=== PATIENT | female | born 1965 | race Two or more races ===

== ENCOUNTER 2021-10-19 13:28 | Inpatient (IN) | payer OTHER, MEDICAID ==
[~2021-10-19] VITALS: Ht 167.6 cm; Wt 126.0 kg
[2021-10-19 15:48] LABS: Basophils # (auto) 0.1 10 ^3/uL (0-0.2); Eosinophils # (auto) 0 10 ^3/uL (0-0.8); Eosinophils % (auto) 0.1 % (0.0-7.0); Hemoglobin 8.8 g/dL (12.2-16.2); Mean Corpuscular Hemoglobin 25.7 pg (28.0-32.0); Nucleated Red Blood Cells % 0.1 %
[2021-10-19 15:50] LABS: Basophils % (auto) 0.5 % (0.0-2.0); Hematocrit 26.9 % (36.0-46.0); Lymphocytes # (auto) 0.9 10 ^3/uL (0.4-5.4); Lymphocytes % (auto) 4.9 % (10.0-50.0); Mean Corpuscular Hgb Conc. 32.8 g/dL (32.0-36.0); Mean Corpuscular Volume 78.3 fL (80.0-100.0); Monocytes # (auto) 0.9 10 ^3/uL (0-1.3); Monocytes % (auto) 4.6 % (0.0-12.0); Neutrophils # (auto) 17.2 10 ^3/uL (1.6-8.6); Neutrophils % (auto) 89.9 % (37.0-80.0); Red Blood Cells 3.44 10^6/uL (4.0-5.20); Red Cell Distribution Width 16.6 % (11.8-14.3); White Blood Cell 19.1 10^3/uL (4.4-10.8)
[2021-10-19 15:52] LABS: Albumin 2.7 g/dL (3.4-5.0); Calcium 8.8 mg/dL (8.5-10.1); Magnesium 2.6 mg/dL (1.6-2.6)
[2021-10-19 15:56] LABS: BUN/Creatinine Ratio 19.1; Bilirubin, Total 0.4 mg/dL (0.2-1.0); Total Protein 6.8 g/dL (6.4-8.2)
[2021-10-19 16:06] LABS: Potassium 6.6 mmol/L (3.5-5.1)
[2021-10-19] MEDS ORDERED: ALBUTEROL SULF 2.5 MG/0.5ML(0.5%) NEB SOLN NEB ONE (16:30)
[2021-10-19] MEDS ORDERED: CALCIUM CHL 100MG/ML 1,000 MG in D5W 5% 100 ML IV ONE (16:30)
[2021-10-19] MEDS ORDERED: InsuLIN REG 1unit/0.01ml Soln (100units/ml) IV ONE (16:30)
[2021-10-19] MEDS ORDERED: SODIUM CHL 0.9% IV ONE (16:45)
[2021-10-19] MEDS ORDERED: CALCIUM CHL IV ONE (16:45)
[2021-10-19] MEDS ORDERED: FUROSEMIDE 40 MG/4 ML VIAL IV ONE (17:00)
[2021-10-19 17:31] LABS: Urine Bacteria FEW /hpf (None Seen); Urine Blood TRACE /uL (Negative); Urine Hyaline Cast FEW /lpf (0 - 2); Urine Mucus FEW (None Seen); Urine Specific Gravity 1.023 (1.001-1.035); Urine WBC 192 /hpf (0 - 5); Urine WBC Clumps PRESENT /hpf (None Seen)
[2021-10-19 18:10] VITALS: BP 115/40
[2021-10-19] MEDS ORDERED: LEVOTHYROXINE SODIUM 100 MCG/5 ML INJ IV ONE ×2 (18:15→18:45)
[2021-10-19] MEDS ORDERED: cefTRIAXone 1GM/50ML D5W 50 ML IV ONE (18:15)
[2021-10-19] MEDS ORDERED: MORPHINE SULFATE INJECTION 2 MG/ML SYRG IV PRN (19:00)
[2021-10-19] MEDS ORDERED: NITROGLYCERIN 0.4 MG SL TAB SL PRN (19:00)
[2021-10-19] MEDS ORDERED: ACETAMINOPHEN 325 MG TAB PO PRN (19:00)
[2021-10-19] MEDS ORDERED: VANCOMYCIN PER PHARMACY 0 MG IV SCH (19:00)
[2021-10-19] MEDS ORDERED: SODIUM CHLORIDE 0.9% 1,000 ML IV SCH (19:00)
[2021-10-19] MEDS ORDERED: DEXTROSE (50%) 50ML SYRG IV PRN (19:15)
[2021-10-19] MEDS ORDERED: VANCOMYCIN 1GM/250ML 250 ML IV ONE (19:15)
[2021-10-19 19:42] LABS: Cholesterol 100 mg/dL (< 200); HDL Cholesterol 43 mg/dL (40-59); LDL Cholesterol 40 mg/dL (< 100); Triglycerides 138 mg/dL (< 150)
[2021-10-19] MEDS: PIPERACILLIN-TAZOB 3.375GM 100 ML IV SCH (19:57)
[2021-10-19 20:08] LABS: BUN/Creatinine Ratio 19.3; Calcium 9.3 mg/dL (8.5-10.1)
[2021-10-19 20:13] VITALS: BP 111/62
[2021-10-19 20:18] LABS: Potassium 6.7 mmol/L (3.5-5.1)
[2021-10-19 20:50] VITALS: BP 97/35
[2021-10-19 21:05] VITALS: BP 97/35
[2021-10-19] MEDS: ACCU-CHEK COMFORT CURVE STRIP VI SCH (22:00)
[2021-10-19] MEDS ORDERED: HEPARIN SODIUM (PORCINE) 5000 UNITS/ML 1ML VIAL IV SCH (22:00)
[2021-10-19 22:20] VITALS: BP 101/52
[2021-10-19] MEDS: InsuLIN REG 1unit/0.01ml Soln (100units/ml) SC SCH (22:55)
[2021-10-20] VITALS (30 sets, daily range): BP systolic 80–151; BP diastolic 26–87
[2021-10-20 01:14] LABS: Hematocrit 26.3 % (36.0-46.0); Hemoglobin 8.7 g/dL (12.2-16.2)
[2021-10-20 01:16] LABS: Mean Corpuscular Hemoglobin 26.4 pg (28.0-32.0); Mean Corpuscular Hgb Conc. 33.2 g/dL (32.0-36.0); Mean Corpuscular Volume 79.7 fL (80.0-100.0); Red Blood Cells 3.29 10^6/uL (4.0-5.20); Red Cell Distribution Width 16.9 % (11.8-14.3); White Blood Cell 16.4 10^3/uL (4.4-10.8)
[2021-10-20 01:32] LABS: Basophils % (manual) 0 (0.0-2.0); Blast Cells 0; Eosinophils % (manual) 0 (0-7); Metamyelocytes % 0; Myelocytes % 0; Promyelocytes % 0; Reactive Lymphocytes 0
[2021-10-20 01:47] LABS: Band Neutrophils % (manual) 3; Lymphocytes % (manual) 12 (10.0-50.0); Monocytes % (manual) 5 (0-12)
[2021-10-20] MEDS ORDERED: SODIUM BICARBONATE 50ML VIAL 100 ML in D5W 5% 1,000 ML IV SCH (02:30)
[2021-10-20] MEDS ORDERED: NOREPINEPHRINE 8 MG/250ML KIT 250 ML IV ONE (02:34)
[2021-10-20] MEDS: NOREPINEPHRINE 8 MG/250ML KIT 250 ML IV SCH (02:54)
[2021-10-20] MEDS ORDERED: SODIUM BICARBONATE 8.4 % INJ 50ML VIAL IV ONE ×3 (03:00→07:00)
[2021-10-20] MEDS: PIPERACILLIN-TAZOB 3.375GM 100 ML IV SCH ×3 (03:11→19:32)
[2021-10-20 05:46] LABS: Chloride 99 mmol/L (98-107); Sodium 129 mmol/L (136-145)
[2021-10-20 05:48] LABS: Basophils # (auto) 0.1 10 ^3/uL (0-0.2); Basophils % (auto) 0.4 % (0.0-2.0); Eosinophils # (auto) 0 10 ^3/uL (0-0.8); Eosinophils % (auto) 0.2 % (0.0-7.0); Hematocrit 24.5 % (36.0-46.0); Hemoglobin 8.1 g/dL (12.2-16.2); Lymphocytes # (auto) 1.6 10 ^3/uL (0.4-5.4); Lymphocytes % (auto) 10.2 % (10.0-50.0); Mean Corpuscular Hemoglobin 26.1 pg (28.0-32.0); Mean Corpuscular Hgb Conc. 33.2 g/dL (32.0-36.0); Mean Corpuscular Volume 78.7 fL (80.0-100.0); Monocytes # (auto) 1.1 10 ^3/uL (0-1.3); Monocytes % (auto) 6.7 % (0.0-12.0); Neutrophils # (auto) 13.3 10 ^3/uL (1.6-8.6); Neutrophils % (auto) 82.5 % (37.0-80.0); Nucleated Red Blood Cells % 0.4 %; Red Blood Cells 3.11 10^6/uL (4.0-5.20); Red Cell Distribution Width 16.4 % (11.8-14.3); White Blood Cell 16.1 10^3/uL (4.4-10.8)
[2021-10-20 06:09] LABS: Alanine Aminotransferase 12 U/L (13-56); Albumin 2.2 g/dL (3.4-5.0); Anion Gap 12 (5-15); Aspartate Aminotransferase 13 U/L (15-37); BUN/Creatinine Ratio 21.5; Blood Urea Nitrogen 42 mg/dL (7-18); Calcium 8.8 mg/dL (8.5-10.1); Carbon Dioxide 18 mmol/L (21-32); GFR African American 34 mL/min; GFR Non-African American 28 mL/min; Glucose 132 mg/dL (74-106)
[2021-10-20 06:11] LABS: Alkaline Phosphatase 169 U/L (45-117); Bilirubin, Total 0.2 mg/dL (0.2-1.0); Total Protein 6.1 g/dL (6.4-8.2)
[2021-10-20] MEDS: ACCU-CHEK COMFORT CURVE STRIP VI SCH ×4 (06:31→21:20)
[2021-10-20] MEDS: InsuLIN REG 1unit/0.01ml Soln (100units/ml) SC SCH ×4 (06:32→21:20)
[2021-10-20 06:40] LABS: Potassium 7.4 mmol/L (3.5-5.1)
[2021-10-20] MEDS ORDERED: DEXTROSE (50%) 50ML SYRG IV ONE (07:00)
[2021-10-20] MEDS ORDERED: SODIUM ZIRCONIUM CYCL 10 GM PAK PO ONE (07:00)
[2021-10-20] MEDS ORDERED: InsuLIN REG 1unit/0.01ml Soln (100units/ml) IV ONE (07:00)
[2021-10-20] MEDS ORDERED: ALBUTEROL SULF 2.5 MG/0.5ML(0.5%) NEB SOLN NEB ONE (07:00)
[2021-10-20] MEDS ORDERED: CALCIUM GLUC 1,000mg/50ml-NS 50 ML IV ONE (07:00)
[2021-10-20] MEDS ORDERED: SODIUM ZIRCONIUM CYCL 10 GM PAK PO SCH (09:30)
[2021-10-20] MEDS ORDERED: LEVOTHYROXINE SODIUM 100 MCG/5 ML INJ IV SCH (10:00)
[2021-10-20] MEDS: PANTOPRAZOLE 40 MG/10 ML VIAL INJ IV SCH (10:03)
[2021-10-20] MEDS: HEPARIN SODIUM (PORCINE) 5000 UNITS/ML 1ML VIAL SC SCH ×2 (10:15→21:20)
[2021-10-20 10:50] LABS: BUN/Creatinine Ratio 20.6; Potassium 4.9 mmol/L (3.5-5.1)
[2021-10-20] MEDS: SODIUM BICARBONATE 50ML VIAL 150 ML in D5W 5% 1,000 ML IV SCH ×2 (10:50→19:24)
[2021-10-20] MEDS ORDERED: LEVOTHYROXINE SODIUM 112 MCG TAB PO ONE (12:30)
[2021-10-20] MEDS: LINEZOLID 600MG/300ML 300 ML IV SCH ×2 (15:15→21:19)
[2021-10-20 18:41] LABS: BUN/Creatinine Ratio 20.6; Calcium 8.7 mg/dL (8.5-10.1); Potassium 5.3 mmol/L (3.5-5.1)
[2021-10-20 18:51] LABS: Protein, Urine 209.9 mg/dL (0.0-11.9)
[2021-10-20 19:00] LABS: Creatinine, Urine 232 mg/dL (30.0-125.0); Sodium Urine < 5 mmol/L (40-220)
[2021-10-20] MEDS ORDERED: FUROSEMIDE 100 MG/10ML VIAL IV ONE (19:30)
[2021-10-20] MEDS: DOPamine 1600MCG/ML D5W 250 ML IV SCH (21:21)
[2021-10-21] VITALS (31 sets, daily range): BP systolic 82–178; BP diastolic 47–102
[2021-10-21] MEDS: SODIUM BICARBONATE 50ML VIAL 150 ML in D5W 5% 1,000 ML IV SCH ×3 (00:50→16:10)
[2021-10-21] MEDS: NOREPINEPHRINE 8 MG/250ML KIT 250 ML IV SCH (02:30)
[2021-10-21 03:51] LABS: Basophils # (auto) 0.1 10 ^3/uL (0-0.2); Basophils % (auto) 0.4 % (0.0-2.0); Eosinophils # (auto) 0.1 10 ^3/uL (0-0.8); Eosinophils % (auto) 0.5 % (0.0-7.0); Hemoglobin 7.5 g/dL (12.2-16.2); Lymphocytes # (auto) 0.8 10 ^3/uL (0.4-5.4); Mean Corpuscular Hemoglobin 26.5 pg (28.0-32.0); Monocytes # (auto) 1.1 10 ^3/uL (0-1.3); Monocytes % (auto) 9.2 % (0.0-12.0); Neutrophils # (auto) 9.7 10 ^3/uL (1.6-8.6); Neutrophils % (auto) 82.9 % (37.0-80.0); Nucleated Red Blood Cells % 0.1 %; Red Blood Cells 2.82 10^6/uL (4.0-5.20); Red Cell Distribution Width 16.8 % (11.8-14.3); White Blood Cell 11.7 10^3/uL (4.4-10.8)
[2021-10-21] MEDS: PIPERACILLIN-TAZOB 3.375GM 100 ML IV SCH ×3 (04:00→19:00)
[2021-10-21 04:16] LABS: Calcium 8.2 mg/dL (8.5-10.1); Potassium 4.4 mmol/L (3.5-5.1)
[2021-10-21 04:20] LABS: Albumin 2.1 g/dL (3.4-5.0); BUN/Creatinine Ratio 20.2
[2021-10-21 04:22] LABS: Bilirubin, Total 0.3 mg/dL (0.2-1.0); Total Protein 5.9 g/dL (6.4-8.2)
[2021-10-21] MEDS: FUROSEMIDE 100 MG/10ML VIAL IV SCH ×2 (05:08→17:53)
[2021-10-21] MEDS: LEVOTHYROXINE SODIUM 100 MCG TAB PO SCH (05:09)
[2021-10-21] MEDS: ACCU-CHEK COMFORT CURVE STRIP VI SCH ×4 (06:14→22:00)
[2021-10-21] MEDS: InsuLIN REG 1unit/0.01ml Soln (100units/ml) SC SCH ×4 (06:15→22:00)
[2021-10-21] MEDS: HEPARIN SODIUM (PORCINE) 5000 UNITS/ML 1ML VIAL SC SCH ×2 (09:46→22:00)
[2021-10-21 09:48] LABS: INR 1.17 (0.9-1.15); Partial Thromboplastin Time 28.4 sec (23.6-33.0)
[2021-10-21] MEDS: LINEZOLID 600MG/300ML 300 ML IV SCH ×2 (09:52→22:00)
[2021-10-21] MEDS: PANTOPRAZOLE 40 MG/10 ML VIAL INJ IV SCH (09:52)
[2021-10-21] MEDS ORDERED: LIDOCAINE 1% (LOCAL ANESTH.) PF 5ml SDV ID ONE (16:15)
[2021-10-21] MEDS: HYDROcodone-ACET 5/325MG TAB PO PRN (17:04)
[2021-10-21] MEDS: SODIUM CHLOR 0.9% PF (SALINE LOCK) 10ML VIAL/SYR IV SCH (21:39)
[2021-10-22] VITALS (46 sets, daily range): BP systolic 107–168; BP diastolic 43–96
[2021-10-22] MEDS: SODIUM BICARBONATE 50ML VIAL 150 ML in D5W 5% 1,000 ML IV SCH ×4 (02:00→22:00)
[2021-10-22] MEDS: NOREPINEPHRINE 8 MG/250ML KIT 250 ML IV SCH (02:30)
[2021-10-22] MEDS: DOPamine 1600MCG/ML D5W 250 ML IV SCH ×2 (02:40→19:30)
[2021-10-22] MEDS: PIPERACILLIN-TAZOB 3.375GM 100 ML IV SCH ×3 (04:00→17:30)
[2021-10-22] MEDS: HYDROcodone-ACET 5/325MG TAB PO PRN ×2 (04:45→14:49)
[2021-10-22] MEDS: DOCUSATE SOD 100 MG CAP PO PRN (04:48)
[2021-10-22] MEDS: FUROSEMIDE 100 MG/10ML VIAL IV SCH ×2 (05:02→17:30)
[2021-10-22 05:20] LABS: Potassium 4.1 mmol/L (3.5-5.1)
[2021-10-22 05:22] LABS: BUN/Creatinine Ratio 23.8
[2021-10-22] MEDS: LEVOTHYROXINE SODIUM 100 MCG TAB PO SCH (05:34)
[2021-10-22 05:45] LABS: Basophils # (auto) 0.1 10 ^3/uL (0-0.2); Basophils % (auto) 0.8 % (0.0-2.0); Eosinophils # (auto) 0.2 10 ^3/uL (0-0.8); Hematocrit 21.6 % (36.0-46.0); Hemoglobin 7.4 g/dL (12.2-16.2); Lymphocytes # (auto) 1.1 10 ^3/uL (0.4-5.4); Mean Corpuscular Hemoglobin 26.5 pg (28.0-32.0); Mean Corpuscular Hgb Conc. 34.2 g/dL (32.0-36.0); Mean Corpuscular Volume 77.7 fL (80.0-100.0); Monocytes # (auto) 1.1 10 ^3/uL (0-1.3); Monocytes % (auto) 10.9 % (0.0-12.0); Neutrophils # (auto) 7.6 10 ^3/uL (1.6-8.6); Neutrophils % (auto) 75.3 % (37.0-80.0); Red Blood Cells 2.78 10^6/uL (4.0-5.20); Red Cell Distribution Width 16.5 % (11.8-14.3); White Blood Cell 10.1 10^3/uL (4.4-10.8)
[2021-10-22] MEDS: MORPHINE SULFATE INJECTION 2 MG/ML SYRG IV PRN ×2 (05:51→19:57)
[2021-10-22] MEDS: ACCU-CHEK COMFORT CURVE STRIP VI SCH ×4 (06:02→21:55)
[2021-10-22] MEDS: InsuLIN REG 1unit/0.01ml Soln (100units/ml) SC SCH ×4 (06:05→22:00)
[2021-10-22] MEDS: LINEZOLID 600MG/300ML 300 ML IV SCH ×2 (09:18→21:59)
[2021-10-22] MEDS: PANTOPRAZOLE 40 MG/10 ML VIAL INJ IV SCH (09:18)
[2021-10-22] MEDS: SODIUM CHLOR 0.9% PF (SALINE LOCK) 10ML VIAL/SYR IV SCH ×2 (09:24→21:59)
[2021-10-22] MEDS: HEPARIN SODIUM (PORCINE) 5000 UNITS/ML 1ML VIAL SC SCH (09:24)
[2021-10-22] MEDS: hydrALAZINE HCL 20 MG/ML VL IV PRN ×2 (15:32→23:00)
[2021-10-22] MEDS ORDERED: ASPirin 81 mg TAB PO ONE (17:45)
[2021-10-22] MEDS: ENOXAPARIN SOD 120 MG/0.8 ML SYRINGE SC SCH (18:11)
[2021-10-22] MEDS: INSULIN LANTUS (GLARGINE) 1 /0.01ml (100units/ml) SC SCH (22:00)
[2021-10-23] VITALS (46 sets, daily range): BP systolic 121–171; BP diastolic 69–97
[2021-10-23] MEDS: NOREPINEPHRINE 8 MG/250ML KIT 250 ML IV SCH (02:30)
[2021-10-23] MEDS: PIPERACILLIN-TAZOB 3.375GM 100 ML IV SCH ×2 (03:00→11:00)
[2021-10-23] MEDS: FUROSEMIDE 100 MG/10ML VIAL IV SCH ×2 (05:33→18:28)
[2021-10-23] MEDS: ENOXAPARIN SOD 120 MG/0.8 ML SYRINGE SC SCH ×2 (05:39→18:29)
[2021-10-23] MEDS: LEVOTHYROXINE SODIUM 100 MCG TAB PO SCH ×2 (05:40→05:47)
[2021-10-23] MEDS: ACCU-CHEK COMFORT CURVE STRIP VI SCH ×4 (05:40→21:38)
[2021-10-23 06:32] LABS: Basophils # (auto) 0 10 ^3/uL (0-0.2); Basophils % (auto) 0.2 % (0.0-2.0); Eosinophils # (auto) 0 10 ^3/uL (0-0.8); Eosinophils % (auto) 0.4 % (0.0-7.0); Hematocrit 25.3 % (36.0-46.0); Hemoglobin 8.7 g/dL (12.2-16.2); Lymphocytes # (auto) 0.6 10 ^3/uL (0.4-5.4); Lymphocytes % (auto) 5.5 % (10.0-50.0); Mean Corpuscular Hemoglobin 27.5 pg (28.0-32.0); Mean Corpuscular Hgb Conc. 34.5 g/dL (32.0-36.0); Mean Corpuscular Volume 79.8 fL (80.0-100.0); Monocytes # (auto) 0.6 10 ^3/uL (0-1.3); Monocytes % (auto) 5.4 % (0.0-12.0); Neutrophils # (auto) 9.4 10 ^3/uL (1.6-8.6); Neutrophils % (auto) 88.5 % (37.0-80.0); Red Blood Cells 3.17 10^6/uL (4.0-5.20); Red Cell Distribution Width 16.1 % (11.8-14.3); White Blood Cell 10.6 10^3/uL (4.4-10.8)
[2021-10-23] MEDS: SODIUM BICARBONATE 50ML VIAL 150 ML in D5W 5% 1,000 ML IV SCH (06:41)
[2021-10-23] MEDS: InsuLIN REG 1unit/0.01ml Soln (100units/ml) SC SCH ×4 (07:00→21:38)
[2021-10-23] MEDS: INSULIN LANTUS (GLARGINE) 1 /0.01ml (100units/ml) SC SCH ×2 (07:00→21:38)
[2021-10-23 07:04] LABS: Potassium 3.7 mmol/L (3.5-5.1)
[2021-10-23 07:23] LABS: Calcium 7.5 mg/dL (8.5-10.1)
[2021-10-23] MEDS: SODIUM CHLORIDE 0.9% 1,000 ML IV SCH ×2 (09:30→18:29)
[2021-10-23] MEDS: PANTOPRAZOLE 40 MG/10 ML VIAL INJ IV SCH ×2 (10:00→21:10)
[2021-10-23] MEDS: LINEZOLID 600MG/300ML 300 ML IV SCH ×2 (10:00→21:11)
[2021-10-23] MEDS: SODIUM CHLOR 0.9% PF (SALINE LOCK) 10ML VIAL/SYR IV SCH ×2 (10:00→21:10)
[2021-10-23] MEDS: ONDANSETRON HCL 4 MG/2 ML VIAL IV PRN (16:14)
[2021-10-23] MEDS: MORPHINE SULFATE INJECTION 2 MG/ML SYRG IV PRN (16:16)
[2021-10-23 16:19] LABS: Potassium 3.9 mmol/L (3.5-5.1)
[2021-10-23 16:22] LABS: Albumin 2.1 g/dL (3.4-5.0); BUN/Creatinine Ratio 22.8; Calcium 8.6 mg/dL (8.5-10.1)
[2021-10-23 16:24] LABS: Bilirubin, Total 0.5 mg/dL (0.2-1.0); Total Protein 6.1 g/dL (6.4-8.2)
[2021-10-23] MEDS: DOPamine 1600MCG/ML D5W 250 ML IV SCH (19:30)
[2021-10-23] MEDS: SUCRALFATE 1 GM/10 ML ORAL SUSP PO SCH (21:10)
[2021-10-24] VITALS (51 sets, daily range): BP systolic 120–203; BP diastolic 63–103
[2021-10-24] MEDS: SODIUM CHLORIDE 0.9% 1,000 ML IV SCH ×3 (01:30→17:24)
[2021-10-24] MEDS: NOREPINEPHRINE 8 MG/250ML KIT 250 ML IV SCH (02:30)
[2021-10-24] MEDS: ONDANSETRON HCL 4 MG/2 ML VIAL IV PRN (03:20)
[2021-10-24] MEDS: MORPHINE SULFATE INJECTION 2 MG/ML SYRG IV PRN (03:21)
[2021-10-24 05:02] LABS: Eosinophils # (auto) 0.2 10 ^3/uL (0-0.8)
[2021-10-24 05:05] LABS: Basophils # (auto) 0.1 10 ^3/uL (0-0.2); Basophils % (auto) 0.6 % (0.0-2.0); Hemoglobin 8.6 g/dL (12.2-16.2); Lymphocytes % (auto) 10.4 % (10.0-50.0); Mean Corpuscular Hemoglobin 26.6 pg (28.0-32.0); Mean Corpuscular Hgb Conc. 34.6 g/dL (32.0-36.0); Monocytes # (auto) 0.8 10 ^3/uL (0-1.3); Monocytes % (auto) 8.2 % (0.0-12.0); Neutrophils # (auto) 7.8 10 ^3/uL (1.6-8.6); Neutrophils % (auto) 78.8 % (37.0-80.0); Nucleated Red Blood Cells % 0.2 %; Red Blood Cells 3.25 10^6/uL (4.0-5.20); Red Cell Distribution Width 15.8 % (11.8-14.3); White Blood Cell 9.8 10^3/uL (4.4-10.8)
[2021-10-24] MEDS: DOPamine 1600MCG/ML D5W 250 ML IV SCH (05:20)
[2021-10-24 05:21] LABS: BUN/Creatinine Ratio 23.4; Calcium 7.9 mg/dL (8.5-10.1); Potassium 3.7 mmol/L (3.5-5.1)
[2021-10-24] MEDS: ENOXAPARIN SOD 120 MG/0.8 ML SYRINGE SC SCH ×2 (05:21→15:37)
[2021-10-24] MEDS: FUROSEMIDE 100 MG/10ML VIAL IV SCH ×2 (05:21→17:20)
[2021-10-24] MEDS: hydrALAZINE HCL 20 MG/ML VL IV PRN ×3 (06:41→23:23)
[2021-10-24] MEDS: LEVOTHYROXINE SODIUM 100 MCG TAB PO SCH (06:42)
[2021-10-24] MEDS: SUCRALFATE 1 GM/10 ML ORAL SUSP PO SCH ×4 (06:42→21:14)
[2021-10-24] MEDS: ACCU-CHEK COMFORT CURVE STRIP VI SCH ×4 (07:00→21:14)
[2021-10-24] MEDS: INSULIN LANTUS (GLARGINE) 1 /0.01ml (100units/ml) SC SCH ×2 (07:29→21:22)
[2021-10-24] MEDS: InsuLIN REG 1unit/0.01ml Soln (100units/ml) SC SCH ×4 (07:30→21:22)
[2021-10-24] MEDS: cefTRIAXone 1GM/50ML D5W 50 ML IV SCH (08:36)
[2021-10-24] MEDS: SODIUM CHLOR 0.9% PF (SALINE LOCK) 10ML VIAL/SYR IV SCH ×2 (09:19→21:14)
[2021-10-24] MEDS: LINEZOLID 600MG/300ML 300 ML IV SCH ×2 (09:19→21:13)
[2021-10-24] MEDS: PANTOPRAZOLE 40 MG/10 ML VIAL INJ IV SCH ×2 (09:19→21:13)
[2021-10-24 11:03] LABS: INR 1.22 (0.9-1.15); Partial Thromboplastin Time 33.4 sec (23.6-33.0)
[2021-10-24] MEDS: HYDROcodone-ACET 5/325MG TAB PO PRN (17:55)
[2021-10-25] VITALS (28 sets, daily range): BP systolic 104–178; BP diastolic 54–100
[2021-10-25] MEDS: HYDROcodone-ACET 5/325MG TAB PO PRN ×3 (01:20→17:52)
[2021-10-25] MEDS: NOREPINEPHRINE 8 MG/250ML KIT 250 ML IV SCH (02:23)
[2021-10-25] MEDS: ENOXAPARIN SOD 120 MG/0.8 ML SYRINGE SC SCH ×2 (05:06→16:44)
[2021-10-25] MEDS: SODIUM CHLORIDE 0.9% 1,000 ML IV SCH ×3 (05:24→09:30)
[2021-10-25] MEDS: SUCRALFATE 1 GM/10 ML ORAL SUSP PO SCH ×4 (06:09→21:31)
[2021-10-25] MEDS: FUROSEMIDE 100 MG/10ML VIAL IV SCH ×2 (06:09→17:15)
[2021-10-25] MEDS: LEVOTHYROXINE SODIUM 100 MCG TAB PO SCH (06:09)
[2021-10-25 06:14] LABS: Basophils # (auto) 0 10 ^3/uL (0-0.2); Basophils % (auto) 0.5 % (0.0-2.0); Eosinophils # (auto) 0.2 10 ^3/uL (0-0.8); Eosinophils % (auto) 2.7 % (0.0-7.0); Hematocrit 23.5 % (36.0-46.0); Lymphocytes # (auto) 1.3 10 ^3/uL (0.4-5.4); Lymphocytes % (auto) 18.8 % (10.0-50.0); Mean Corpuscular Hemoglobin 26.5 pg (28.0-32.0); Mean Corpuscular Hgb Conc. 34.1 g/dL (32.0-36.0); Mean Corpuscular Volume 77.7 fL (80.0-100.0); Monocytes # (auto) 0.6 10 ^3/uL (0-1.3); Monocytes % (auto) 8.2 % (0.0-12.0); Neutrophils # (auto) 4.7 10 ^3/uL (1.6-8.6); Neutrophils % (auto) 69.8 % (37.0-80.0); Nucleated Red Blood Cells % 0.1 %; Red Blood Cells 3.02 10^6/uL (4.0-5.20); Red Cell Distribution Width 16.3 % (11.8-14.3); White Blood Cell 6.7 10^3/uL (4.4-10.8)
[2021-10-25] MEDS: InsuLIN REG 1unit/0.01ml Soln (100units/ml) SC SCH ×4 (06:23→21:31)
[2021-10-25] MEDS: INSULIN LANTUS (GLARGINE) 1 /0.01ml (100units/ml) SC SCH ×2 (06:23→21:32)
[2021-10-25 06:24] LABS: Potassium 3.6 mmol/L (3.5-5.1)
[2021-10-25 06:37] LABS: BUN/Creatinine Ratio 19.5; Calcium 8.3 mg/dL (8.5-10.1); Magnesium 1.5 mg/dL (1.6-2.6)
[2021-10-25] MEDS: ACCU-CHEK COMFORT CURVE STRIP VI SCH ×4 (07:22→21:31)
[2021-10-25] MEDS: cefTRIAXone 1GM/50ML D5W 50 ML IV SCH (08:28)
[2021-10-25] MEDS ORDERED: LIDOCAINE 2%HCL (LOCAL ANESTH.) INJ 10ml MDV ONE (09:02)
[2021-10-25] MEDS: LINEZOLID 600MG/300ML 300 ML IV SCH ×2 (09:25→21:30)
[2021-10-25] MEDS: PANTOPRAZOLE 40 MG/10 ML VIAL INJ IV SCH ×2 (10:00→21:30)
[2021-10-25] MEDS: SODIUM CHLOR 0.9% PF (SALINE LOCK) 10ML VIAL/SYR IV SCH ×2 (10:00→21:30)
[2021-10-26] VITALS (12 sets, daily range): BP systolic 138–167; BP diastolic 58–90
[2021-10-26] MEDS: ONDANSETRON HCL 4 MG/2 ML VIAL IV PRN ×2 (00:41→06:14)
[2021-10-26] MEDS: MORPHINE SULFATE INJECTION 2 MG/ML SYRG IV PRN ×3 (00:41→18:03)
[2021-10-26] MEDS: SODIUM CHLORIDE 0.9% 1,000 ML IV SCH ×2 (03:03→17:43)
[2021-10-26] MEDS: FUROSEMIDE 100 MG/10ML VIAL IV SCH ×2 (06:15→18:01)
[2021-10-26] MEDS: ENOXAPARIN SOD 120 MG/0.8 ML SYRINGE SC SCH ×2 (06:15→18:02)
[2021-10-26] MEDS: SUCRALFATE 1 GM/10 ML ORAL SUSP PO SCH ×4 (06:16→21:34)
[2021-10-26] MEDS: LEVOTHYROXINE SODIUM 100 MCG TAB PO SCH (06:16)
[2021-10-26] MEDS: ACCU-CHEK COMFORT CURVE STRIP VI SCH ×4 (06:16→21:34)
[2021-10-26] MEDS: InsuLIN REG 1unit/0.01ml Soln (100units/ml) SC SCH ×4 (07:00→21:36)
[2021-10-26] MEDS: INSULIN LANTUS (GLARGINE) 1 /0.01ml (100units/ml) SC SCH ×2 (07:00→21:35)
[2021-10-26] MEDS: cefTRIAXone 1GM/50ML D5W 50 ML IV SCH (09:00)
[2021-10-26] MEDS: LINEZOLID 600MG/300ML 300 ML IV SCH ×2 (09:56→21:33)
[2021-10-26] MEDS: PANTOPRAZOLE 40 MG/10 ML VIAL INJ IV SCH ×2 (09:56→21:33)
[2021-10-26] MEDS: SODIUM CHLOR 0.9% PF (SALINE LOCK) 10ML VIAL/SYR IV SCH ×2 (09:56→21:33)
[2021-10-26] MEDS: HYDROcodone-ACET 5/325MG TAB PO PRN ×2 (14:43→21:36)
[2021-10-27] MEDS: MORPHINE SULFATE INJECTION 2 MG/ML SYRG IV PRN (01:42)
[2021-10-27] MEDS: HYDROcodone-ACET 5/325MG TAB PO PRN ×3 (03:48→21:49)
[2021-10-27 05:00] VITALS: BP 138/59
[2021-10-27] MEDS: ENOXAPARIN SOD 120 MG/0.8 ML SYRINGE SC SCH (05:31)
[2021-10-27] MEDS: FUROSEMIDE 100 MG/10ML VIAL IV SCH ×2 (05:31→17:43)
[2021-10-27] MEDS: SUCRALFATE 1 GM/10 ML ORAL SUSP PO SCH ×4 (06:06→21:42)
[2021-10-27] MEDS: LEVOTHYROXINE SODIUM 100 MCG TAB PO SCH (06:06)
[2021-10-27] MEDS: ACCU-CHEK COMFORT CURVE STRIP VI SCH ×4 (06:07→21:43)
[2021-10-27] MEDS: InsuLIN REG 1unit/0.01ml Soln (100units/ml) SC SCH ×4 (06:07→21:51)
[2021-10-27] MEDS: INSULIN LANTUS (GLARGINE) 1 /0.01ml (100units/ml) SC SCH ×2 (06:40→21:50)
[2021-10-27] MEDS: SODIUM CHLORIDE 0.9% 1,000 ML IV SCH (06:42)
[2021-10-27 07:12] LABS: Eosinophils # (auto) 0.2 10 ^3/uL (0-0.8); Mean Corpuscular Volume 77.4 fL (80.0-100.0); Monocytes # (auto) 0.5 10 ^3/uL (0-1.3); Nucleated Red Blood Cells % 0.1 %
[2021-10-27 07:13] LABS: Basophils # (auto) 0 10 ^3/uL (0-0.2); Basophils % (auto) 0.6 % (0.0-2.0); Eosinophils % (auto) 2.9 % (0.0-7.0); Hematocrit 24.1 % (36.0-46.0); Hemoglobin 8.4 g/dL (12.2-16.2); Lymphocytes # (auto) 1.7 10 ^3/uL (0.4-5.4); Lymphocytes % (auto) 19.9 % (10.0-50.0); Mean Corpuscular Hemoglobin 26.8 pg (28.0-32.0); Mean Corpuscular Hgb Conc. 34.7 g/dL (32.0-36.0); Monocytes % (auto) 5.7 % (0.0-12.0); Neutrophils # (auto) 5.9 10 ^3/uL (1.6-8.6); Neutrophils % (auto) 70.9 % (37.0-80.0); Red Blood Cells 3.12 10^6/uL (4.0-5.20); Red Cell Distribution Width 16.5 % (11.8-14.3); White Blood Cell 8.3 10^3/uL (4.4-10.8)
[2021-10-27 07:16] LABS: BUN/Creatinine Ratio 14.7; Calcium 8.1 mg/dL (8.5-10.1); Potassium 3.2 mmol/L (3.5-5.1)
[2021-10-27 08:34] VITALS: BP 139/62
[2021-10-27] MEDS: cefTRIAXone 1GM/50ML D5W 50 ML IV SCH (09:05)
[2021-10-27] MEDS: PANTOPRAZOLE 40 MG/10 ML VIAL INJ IV SCH ×2 (09:06→21:42)
[2021-10-27] MEDS: SODIUM CHLOR 0.9% PF (SALINE LOCK) 10ML VIAL/SYR IV SCH ×2 (09:06→21:42)
[2021-10-27] MEDS: LINEZOLID 600MG/300ML 300 ML IV SCH ×2 (10:30→21:42)
[2021-10-27 12:58] VITALS: BP 111/76
[2021-10-27] MEDS ORDERED: POTASSIUM CHL 20 Meq TABLET PO ONE (14:00)
[2021-10-27] MEDS: diphenhdrAMINE HCL 25 MG CAP PO PRN ×2 (14:53→21:49)
[2021-10-27 16:33] VITALS: BP 129/71
[2021-10-27 22:00] VITALS: BP_SYST 134; BP_SYST 141; BP_DIAS 63; BP_DIAS 69
[2021-10-28] VITALS (8 sets, daily range): BP systolic 120–155; BP diastolic 69–80
[2021-10-28] MEDS ORDERED: GABA300C10 PO (00:34)
[2021-10-28] MEDS ORDERED: CARV12.544 PO (00:34)
[2021-10-28] MEDS ORDERED: LOSA25TA38 PO (00:34)
[2021-10-28] MEDS ORDERED: INSLANTI SC (00:34)
[2021-10-28] MEDS ORDERED: CHOL20007 PO (00:34)
[2021-10-28] MEDS ORDERED: LEVO175T66 PO (00:34)
[2021-10-28] MEDS ORDERED: ATOR10TA52 PO (00:34)
[2021-10-28] MEDS ORDERED: ESCI5TAB PO (00:34)
[2021-10-28] MEDS ORDERED: [UNRECOGNIZED DRUG - CODE] SL (00:34)
[2021-10-28] MEDS: SODIUM CHLORIDE 0.9% 1,000 ML IV SCH ×2 (02:57→08:10)
[2021-10-28] MEDS: HYDROcodone-ACET 5/325MG TAB PO PRN ×3 (04:16→19:30)
[2021-10-28] MEDS: diphenhdrAMINE HCL 25 MG CAP PO PRN ×2 (04:17→19:30)
[2021-10-28] MEDS: FUROSEMIDE 100 MG/10ML VIAL IV SCH ×2 (05:34→18:00)
[2021-10-28] MEDS: ACCU-CHEK COMFORT CURVE STRIP VI SCH ×4 (06:02→21:28)
[2021-10-28] MEDS: SUCRALFATE 1 GM/10 ML ORAL SUSP PO SCH ×4 (06:02→21:27)
[2021-10-28] MEDS: LEVOTHYROXINE SODIUM 100 MCG TAB PO SCH (06:02)
[2021-10-28] MEDS: InsuLIN REG 1unit/0.01ml Soln (100units/ml) SC SCH ×4 (06:03→21:36)
[2021-10-28] MEDS: INSULIN LANTUS (GLARGINE) 1 /0.01ml (100units/ml) SC SCH ×2 (06:03→21:36)
[2021-10-28 06:53] LABS: BUN/Creatinine Ratio 12.5; Calcium 8.2 mg/dL (8.5-10.1); Potassium 3.4 mmol/L (3.5-5.1)
[2021-10-28] MEDS: SODIUM CHLOR 0.9% PF (SALINE LOCK) 10ML VIAL/SYR IV SCH ×2 (10:00→21:28)
[2021-10-28] MEDS: PANTOPRAZOLE 40 MG/10 ML VIAL INJ IV SCH ×2 (10:49→21:27)
[2021-10-28] MEDS: cefTRIAXone 1GM/50ML D5W 50 ML IV SCH (10:49)
[2021-10-28] MEDS: LINEZOLID 600MG/300ML 300 ML IV SCH ×2 (11:30→21:27)
[2021-10-28] MEDS: SOD CHL 0.9%/ KCL 20MEQ 1,000 ML IV SCH (12:30)
[2021-10-29] MEDS: HYDROcodone-ACET 5/325MG TAB PO PRN ×3 (02:08→19:39)
[2021-10-29] MEDS: diphenhdrAMINE HCL 25 MG CAP PO PRN ×2 (02:55→12:58)
[2021-10-29 05:00] VITALS: BP 149/89
[2021-10-29] MEDS: LEVOTHYROXINE SODIUM 100 MCG TAB PO SCH (05:24)
[2021-10-29] MEDS: FUROSEMIDE 100 MG/10ML VIAL IV SCH ×2 (05:24→18:14)
[2021-10-29 05:58] LABS: Basophils # (auto) 0.1 10 ^3/uL (0-0.2); Monocytes # (auto) 0.5 10 ^3/uL (0-1.3); Neutrophils % (auto) 73.5 % (37.0-80.0); Nucleated Red Blood Cells % 0.1 %; Red Cell Distribution Width 16.8 % (11.8-14.3)
[2021-10-29] MEDS: ACCU-CHEK COMFORT CURVE STRIP VI SCH ×4 (05:59→21:22)
[2021-10-29] MEDS: SUCRALFATE 1 GM/10 ML ORAL SUSP PO SCH ×4 (05:59→21:21)
[2021-10-29 06:00] LABS: Eosinophils # (auto) 0.2 10 ^3/uL (0-0.8); Hematocrit 24.2 % (36.0-46.0); Hemoglobin 8.3 g/dL (12.2-16.2); Lymphocytes # (auto) 1.4 10 ^3/uL (0.4-5.4); Lymphocytes % (auto) 17.4 % (10.0-50.0); Mean Corpuscular Hemoglobin 26.8 pg (28.0-32.0); Mean Corpuscular Hgb Conc. 34.4 g/dL (32.0-36.0); Monocytes % (auto) 6.1 % (0.0-12.0); White Blood Cell 8.2 10^3/uL (4.4-10.8)
[2021-10-29] MEDS: InsuLIN REG 1unit/0.01ml Soln (100units/ml) SC SCH ×4 (06:00→21:28)
[2021-10-29] MEDS: INSULIN LANTUS (GLARGINE) 1 /0.01ml (100units/ml) SC SCH ×2 (06:01→21:29)
[2021-10-29] MEDS: DOCUSATE SOD 100 MG CAP PO PRN (06:03)
[2021-10-29 06:14] LABS: Calcium 8.2 mg/dL (8.5-10.1); Magnesium 1.5 mg/dL (1.6-2.6); Potassium 3.4 mmol/L (3.5-5.1)
[2021-10-29] MEDS: SOD CHL 0.9%/ KCL 20MEQ 1,000 ML IV SCH (08:30)
[2021-10-29 09:00] VITALS: BP 139/84
[2021-10-29] MEDS: SODIUM CHLOR 0.9% PF (SALINE LOCK) 10ML VIAL/SYR IV SCH ×2 (10:00→21:22)
[2021-10-29] MEDS: LINEZOLID 600MG/300ML 300 ML IV SCH (10:34)
[2021-10-29] MEDS: PANTOPRAZOLE 40 MG/10 ML VIAL INJ IV SCH ×2 (10:34→21:21)
[2021-10-29] MEDS: cefTRIAXone 1GM/50ML D5W 50 ML IV SCH (10:34)
[2021-10-29 13:00] VITALS: BP 137/74
[2021-10-29 17:00] VITALS: BP 146/84
[2021-10-29] MEDS: DOXYCYCLINE 100 MG TAB/CAP PO SCH (21:21)
[2021-10-29 22:00] VITALS: BP 168/87
[2021-10-29 23:40] VITALS: BP 146/85
[2021-10-30] MEDS: SOD CHL 0.9%/ KCL 20MEQ 1,000 ML IV SCH (04:42)
[2021-10-30 05:00] VITALS: BP 155/77
[2021-10-30] MEDS: HYDROcodone-ACET 5/325MG TAB PO PRN ×2 (05:00→08:49)
[2021-10-30 05:06] LABS: BUN/Creatinine Ratio 11.6; Calcium 8.3 mg/dL (8.5-10.1); Potassium 3.2 mmol/L (3.5-5.1)
[2021-10-30] MEDS: FUROSEMIDE 100 MG/10ML VIAL IV SCH (05:14)
[2021-10-30] MEDS: InsuLIN REG 1unit/0.01ml Soln (100units/ml) SC SCH ×2 (05:14→12:02)
[2021-10-30] MEDS: SUCRALFATE 1 GM/10 ML ORAL SUSP PO SCH ×2 (05:14→11:40)
[2021-10-30] MEDS: LEVOTHYROXINE SODIUM 100 MCG TAB PO SCH (05:14)
[2021-10-30] MEDS: ACCU-CHEK COMFORT CURVE STRIP VI SCH ×2 (05:15→11:30)
[2021-10-30] MEDS: INSULIN LANTUS (GLARGINE) 1 /0.01ml (100units/ml) SC SCH (06:07)
[2021-10-30] MEDS: DOXYCYCLINE 100 MG TAB/CAP PO SCH (08:49)
[2021-10-30] MEDS: SODIUM CHLOR 0.9% PF (SALINE LOCK) 10ML VIAL/SYR IV SCH (08:49)
[2021-10-30] MEDS: PANTOPRAZOLE 40 MG/10 ML VIAL INJ IV SCH (08:49)
[2021-10-30] MEDS: cefTRIAXone 1GM/50ML D5W 50 ML IV SCH (08:49)
[2021-10-30 08:50] VITALS: BP 154/83
[2021-10-30 12:35] VITALS: BP 124/72
[2021-10-30] MEDS: diphenhdrAMINE HCL 25 MG CAP PO PRN (12:37)
[2021-10-30] MEDS ORDERED: POTASSIUM CHL 20 Meq TABLET PO ONE (13:15)
[2021-10-30] MEDS ORDERED: DOX100T PO (13:27)
[2021-10-30 15:19] VITALS: BP 124/72
[2021-10-30 16:58] VITALS: BP 135/74
== END 2021-10-30 16:52 | disposition home health service (06) | DRG 871 ==
LOC: ER 13:28 → EDBD 13:28 → OVERFLOW 18:56 → ICU WEST 21:04 → DOU IN ICU 10-21 22:41 → TELE-CENTR 10-26 13:09
PROVIDERS: ADMIT Family Medicine; ATTEND Internal Medicine Geriatric Medicine
PROC: 05HF33Z Insertion of Infusion Device into Left Cephalic Vein, Percutaneous Approach (ICD-10-PCS; 2021-10-19)
PROC: B54NZZA Ultrasonography of Left Upper Extremity Veins, Guidance (ICD-10-PCS; 2021-10-19)
PROC: 5A09357 Assistance with Respiratory Ventilation, Less than 24 Consecutive Hours, Continuous Positive Airway Pressure (ICD-10-PCS; 2021-10-19)
PROC: 5A09357 Assistance with Respiratory Ventilation, Less than 24 Consecutive Hours, Continuous Positive Airway Pressure (ICD-10-PCS; 2021-10-20)
PROC: 02HV33Z Insertion of Infusion Device into Superior Vena Cava, Percutaneous Approach (ICD-10-PCS; 2021-10-21)
PROC: B548ZZA Ultrasonography of Superior Vena Cava, Guidance (ICD-10-PCS; 2021-10-21)
PROC: 0W9B3ZZ Drainage of Left Pleural Cavity, Percutaneous Approach (ICD-10-PCS; principal; 2021-10-22)
PROC: 5A09357 Assistance with Respiratory Ventilation, Less than 24 Consecutive Hours, Continuous Positive Airway Pressure (ICD-10-PCS; 2021-10-22)
PROC: 5A09357 Assistance with Respiratory Ventilation, Less than 24 Consecutive Hours, Continuous Positive Airway Pressure (ICD-10-PCS; 2021-10-24)
PROC: 0W9B3ZZ Drainage of Left Pleural Cavity, Percutaneous Approach (ICD-10-PCS; 2021-10-25)
PROC: 5A09357 Assistance with Respiratory Ventilation, Less than 24 Consecutive Hours, Continuous Positive Airway Pressure (ICD-10-PCS; 2021-10-28)
PROC: 5A09357 Assistance with Respiratory Ventilation, Less than 24 Consecutive Hours, Continuous Positive Airway Pressure (ICD-10-PCS; 2021-10-30)
DX: A41.9 Sepsis, unspecified organism (principal); J18.9 Pneumonia, unspecified organism; N17.0 Acute kidney failure with tubular necrosis; J96.21 Acute and chronic respiratory failure with hypoxia; J96.22 Acute and chronic respiratory failure with hypercapnia; I50.31 Acute diastolic (congestive) heart failure; E44.0 Moderate protein-calorie malnutrition; E87.1 Hypo-osmolality and hyponatremia; J91.8 Pleural effusion in other conditions classified elsewhere; J98.11 Atelectasis; Z68.41 Body mass index [BMI] 40.0-44.9, adult; E66.2 Morbid (severe) obesity with alveolar hypoventilation; R18.8 Other ascites; I13.0 Hypertensive heart and chronic kidney disease with heart failure and stage 1 through stage 4 chronic kidney disease, or unspecified chronic kidney disease; N39.0 Urinary tract infection, site not specified; D63.8 Anemia in other chronic diseases classified elsewhere; E88.09 Other disorders of plasma-protein metabolism, not elsewhere classified; E86.0 Dehydration; E87.5 Hyperkalemia; E03.9 Hypothyroidism, unspecified; L02.92 Furuncle, unspecified; E87.6 Hypokalemia; B96.20 Unspecified Escherichia coli [E. coli] as the cause of diseases classified elsewhere; E11.22 Type 2 diabetes mellitus with diabetic chronic kidney disease; E78.5 Hyperlipidemia, unspecified; Z20.822 Contact with and (suspected) exposure to COVID-19; M54.50 Low back pain, unspecified; E11.65 Type 2 diabetes mellitus with hyperglycemia; Z74.01 Bed confinement status; N18.9 Chronic kidney disease, unspecified
CPT/HCPCS: 36415; 36569; 36600; 71045; 71250; 74176; 76604; 76700; 76775; 76942; 80048; 80053; 80061; 80202; 81001; 82306; 82570; 82805; 82962; 83036; 83605; 83615; 83690; 83735; 83880; 83970; 83986; 84100; 84156; 84300; 84443; 84484; 85007; 85025; 85027; 85379; 85610; 85730; 87040; 87081; 87086; 87088; 87186; 87205; 89051; 93005; 93306; 93970; 94640; 94660; 96365; 96367; 96375; 97110; 97116; 97163; 97530; 99291; C9113; G0378; J0696; J1815; J2001; J2405; J2543; J3490; J7060